=== PATIENT | female | born 1960 | race Caucasian/White ===

== ENCOUNTER 2021-04-14 17:30 | Emergency (ER) | payer BC ==
[~2021-04-14] VITALS: Ht 160 cm; Wt 40.4 kg
--- NOTE | 2021-04-14 18:00 | NUR ---
BIB RA C/O NAUSEA AND VOMITING X 2 DAYS. PATIENT A/OX4, BREATHING EVEN AND UNLABORED, NO SOB NOTED, NEEDS ATTENDED. KEPT COMFORTABLE. PLACED ON THE RELATIONSHIP CONSULTANT.
[2021-04-14] MEDS ORDERED: PANTOPRAZOLE 40 MG VIAL ONE (18:17)
[2021-04-14] MEDS ORDERED: ONDANSETRON HCL/PF 4 MG/2 ML VIAL ONE (18:17)
--- NOTE | 2021-04-14 18:25 | NUR ---
IV LINE ESTABLISHED, BLOOD DRAWN AND SENT TO LAB.
[2021-04-14] MEDS ORDERED: IV NS 0.9% 1,000 ML BAG IV ONE (18:30)
[2021-04-14] MEDS ORDERED: PANTOPRAZOLE 40 MG VIAL IV ONE (18:30)
[2021-04-14] MEDS ORDERED: ONDANSETRON HCL/PF 4 MG/2 ML VIAL IVP ONE (18:30)
[2021-04-14 18:31] LABS: BASOPHILS % (AUTO) 0.2 % (0.0-2.0); EOSINOPHILS % (AUTO) 0.2 % (0.0-6.0); HEMATOCRIT 32 % (33-45); HEMOGLOBIN 10.2 g/dL (11.5-14.8); LYMPHOCYTES # (AUTO) 0.5 /CMM (0.8-4.8); LYMPHOCYTES % (AUTO) 4.3 % (20.0-44.0); MEAN CORPUSCULAR HGB CONC 32 g/dl (31.0-36.0); MEAN CORPUSCULAR VOLUME 81 fL (82-100); MONOCYTES # (AUTO) 0.6 /CMM (0.1-1.30); MONOCYTES % (AUTO) 5.8 % (2.0-12.0); NEUTROPHILS # (AUTO) 9.9 /CMM (1.8-8.9); NEUTROPHILS % (AUTO) 89.5 % (43.0-81.0); PLATELET COUNT (AUTO) 378 /CMM (150-450); RED BLOOD CELL COUNT(AUTO) 3.95 MIL/uL (4.0-5.2); WHITE BLOOD COUNT (AUTO) 11.1 K/uL (4.3-11.0)
[2021-04-14 18:43] LABS: CALCIUM, SERUM 9.4 mg/dL (8.5-10.1); CREATININE 1.9 mg/dL (0.6-1.3); POTASSIUM 3.9 mmol/L (3.5-5.1)
--- NOTE | 2021-04-14 18:57 | NUR ---
Rima peterson in [facility] - 04/14/21 at 1858 by KATERINE PATIENT TRANSFERRED TO ROOM [facility] VIA ACLS PROTOCOL.
--- NOTE | 2021-04-14 18:58 | NUR ---
PATIENT TAKEN TO CT.
[2021-04-14 19:09] LABS: ALBUMIN 3.6 g/dL (3.4-5.0); BILIRUBIN,DIRECT 0.1 mg/dL (0.0-0.2); BILIRUBIN,TOTAL 0.4 mg/dL (0.2-1.0); TOTAL PROTEIN, SERUM 8.1 g/dL (6.4-8.2)
--- NOTE | 2021-04-14 20:04 | NUR ---
CALLED [facility] TO FOLLOW UP, CURRENTLY MD EASTON ON PHONE WITH RADIOLOGIST.
[2021-04-14] MEDS ORDERED: PIPERACILLIN /TAZOBACTAM 2.25 G in IV D5W 50 ML IV ONE (20:30)
[2021-04-14] MEDS ORDERED: PIPERACILLIN /TAZOBACTAM 2.25 G VIAL IV ONE (20:38)
--- NOTE | 2021-04-14 21:07 | NUR ---
PER PATIENT REQUEST, SPOKE WITH [facility] FROM [facility]. WILL FAX CLINICAL INFORMATION PER REQUEST AT THIS TIME
--- NOTE | 2021-04-14 21:07 | NUR ---
FINISHED WITH US PROCEDURE
--- NOTE | 2021-04-14 21:14 | NUR ---
CALLED [facility] FOR REPORT
--- NOTE | 2021-04-14 21:19 | NUR ---
GABRIEL (SPOUSE) CONTACT INFORMATION: [phone]
--- NOTE | 2021-04-14 21:51 | NUR ---
DR. EASTON SPEAKING WITH MAGNO COTTO, DR. CLAY
--- NOTE | 2021-04-14 21:54 | NUR ---
Rima peterson in ED - 04/14/21 at [address] EASTON PT ACCEPTED BY DR. CLAY TO [facility] TO [facility], PENDING TRANSFER INFORMATION
--- NOTE | 2021-04-14 21:57 | NUR ---
PER DR. EASTON PT ACCEPTED BY DR. ANDERSON TO [facility] TO [facility], PENDING TRANSFER INFORMATION
[2021-04-14] MEDS ORDERED: IV NS 0.9% 500 ML BAG IV ONE (22:00)
--- NOTE | 2021-04-14 22:22 | NUR ---
TRANSFER INFORMATION: PT WILL BE TRANSFERED TO [facility] PER PATIENT REQUEST ACCEPTING MD: DR. ANDERSON NUMBER FOR REPORT: [phone] ROOM ASSIGNMENT: [id number] PER CHIN FROM [facility], WILL CALL BACK WITH TRANSPORTATION ETA
--- NOTE | 2021-04-14 23:23 | NUR ---
called transfer center, staff states that I would need to call at [phone] before transfer.
--- NOTE | 2021-04-15 00:14 | NUR ---
REPORT GIVEN TO CAROLIN PRYOR AT [facility].
[2021-04-15 01:00] VITALS: BP 114/80
--- NOTE | 2021-04-15 01:12 | NUR ---
report given to transport team for jose c. and transferring responsibilities.
== END 2021-04-15 01:19 | disposition short-term general hospital (02) ==
LOC: ER 17:34
DX: K56.609 Unspecified intestinal obstruction, unspecified as to partial versus complete obstruction (principal); K80.20 Calculus of gallbladder without cholecystitis without obstruction; N17.9 Acute kidney failure, unspecified; D64.9 Anemia, unspecified; E86.0 Dehydration; R11.2 Nausea with vomiting, unspecified; Z20.822 Contact with and (suspected) exposure to COVID-19; Z85.43 Personal history of malignant neoplasm of ovary; Z92.3 Personal history of irradiation; M79.7 Fibromyalgia
CPT/HCPCS: 36415; 74176; 76705; 80048; 80076; 83690; 83735; 85025; 87426; 96361; 96365; 96375; 99285; C9113; C9803; J2405; J2543; J7030; J7040